=== PATIENT | male | born 1935 | race African-American/Black ===

== ENCOUNTER 2017-12-03 10:06 | Inpatient (IN) | payer OTHER ==
[~2017-12-03] VITALS: Ht 185.4 cm; Wt 77.1 kg
[2017-12-03 11:01] LABS: BASOPHILS % 1.1 % (0.0-2.0); EOSINOPHILS % 1.2 % (0.0-5.0); HEMATOCRIT. 41.9 % (42.0-52.0); HEMOGLOBIN. 13.3 g/dL (14.0-18.0); LYMPHOCYTES % 27.6 % (20.0-50.0); MEAN CORPUSCULAR HEMOGLOBIN 25.7 pg (28.0-32.0); MEAN PLATELET VOLUME 7.7 fl (7.4-10.4); NEUTROPHILS % 66.1 % (40.0-76.0); PLATELET 208 x1000/uL (130-400); RED BLOOD CELL COUNT 5.18 mill/uL (4.7-6.1); RED CELL DISTRIBUTION WIDTH 15.1 % (11.6-14.6)
[2017-12-03 11:10] LABS: INR 1.2; PARTIAL THROMBOPLASTIN TIME 28.6 sec (23.4-31.0); PROTHROMBIN TIME 12.3 sec (9.4-11.6)
[2017-12-03 11:19] LABS: CARBON DIOXIDE 24 mEq/L (21-32); CHLORIDE 105 mEq/L (98-107); CREATINE KINASE 50 IU/L (39-308); TROPONIN I < 0.02 ng/mL (0.00-0.04)
[2017-12-03] MEDS ORDERED: FUROSEMIDE 20MG/2ML VIAL IVP ONE (11:45)
[2017-12-03] MEDS ORDERED: GUAIFENESIN 200MG/10ML SUGAR FREE UDC PO PRN (11:45)
[2017-12-03] MEDS ORDERED: LORAZEPAM 2MG/ML CPJ IV PRN (11:45)
[2017-12-03] MEDS ORDERED: DIPHENHYDRAMINE 50MG/ML VIAL IV PRN (11:45)
[2017-12-03] MEDS ORDERED: DOCUSATE SODIUM 100MG CAPSULE PO PRN (11:45)
[2017-12-03] MEDS ORDERED: ONDANSETRON HCL 4MG/2ML VIAL IV PRN (11:45)
[2017-12-03] MEDS ORDERED: NA PHOS,M-B/NA PHOS,DI-BA ENEMA 118ML PR PRN (11:45)
[2017-12-03] MEDS ORDERED: HYDROMORPHONE HCL/PF 2MG/ML CPJ IV PRN (11:45)
[2017-12-03] MEDS ORDERED: CLONIDINE 0.1MG TABLET PO PRN (11:45)
[2017-12-03] MEDS ORDERED: MAGNESIUM/ALUMINUM HYDROXIDE/SIMETHICONE 30ML UDC PO PRN (11:45)
[2017-12-03] MEDS ORDERED: ACETAMINOPHEN 325MG TABLET PO PRN (11:45)
[2017-12-03] MEDS ORDERED: IPRATROPIUM/ALBUTEROL 0.5-3(2.5)MG/3ML NEB INH PRN (11:45)
[2017-12-03 13:15] VITALS: BP 142/94
[2017-12-03] MEDS: LISINOPRIL 5MG TABLET PO SCH (14:57)
[2017-12-03] MEDS: SODIUM CHLORIDE 0.45% 1,000 ML IV SCH (14:58)
[2017-12-03] MEDS: ENOXAPARIN 40MG/0.4ML SYR SUBCUT SCH (14:58)
[2017-12-03 16:00] VITALS: BP 128/70
[2017-12-03] MEDS ORDERED: FLUD0.1T PO (18:24)
[2017-12-03] MEDS ORDERED: ASPI-1159 PO (18:24)
[2017-12-03] MEDS ORDERED: LISI-186 PO (18:24)
[2017-12-03] MEDS ORDERED: SIMV20TA6 PO (18:24)
[2017-12-03 20:00] VITALS: BP 124/63
[2017-12-03 20:41] LABS: CARBON DIOXIDE 27 mEq/L (21-32); CHLORIDE 103 mEq/L (98-107); CREATINE KINASE 51 IU/L (39-308); TROPONIN I < 0.02 ng/mL (0.00-0.04)
[2017-12-03] MEDS ORDERED: ATORVASTATIN CALCIUM 20MG TABLET PO SCH (21:00)
[2017-12-03] MEDS: AMLODIPINE 5MG TABLET PO SCH (21:16)
[2017-12-04] VITALS (8 sets, daily range): BP systolic 81–148; BP diastolic 42–73
[2017-12-04] MEDS: SODIUM CHLORIDE 0.45% 1,000 ML IV SCH (06:10)
[2017-12-04 07:19] LABS: BASOPHILS % 1.1 % (0.0-2.0); EOSINOPHILS % 2.6 % (0.0-5.0); HEMATOCRIT. 35.9 % (42.0-52.0); HEMOGLOBIN. 11.7 g/dL (14.0-18.0); LYMPHOCYTES % 39.8 % (20.0-50.0); MEAN CORPUSCULAR HEMOGLOBIN 26.3 pg (28.0-32.0); MEAN CORPUSCULAR VOLUME 80.5 fL (80.0-94.0); MEAN PLATELET VOLUME 8.7 fl (7.4-10.4); MONOCYTES % 6.8 % (2.0-8.0); NEUTROPHILS % 49.7 % (40.0-76.0); PLATELET 148 x1000/uL (130-400); RED BLOOD CELL COUNT 4.46 mill/uL (4.7-6.1); RED CELL DISTRIBUTION WIDTH 15.2 % (11.6-14.6)
[2017-12-04 07:39] LABS: CHLORIDE 104 mEq/L (98-107); T4 FREE 0.91 ng/dL (0.76-1.46)
[2017-12-04 08:03] LABS: CARBON DIOXIDE 29 mEq/L (21-32)
[2017-12-04] MEDS: AMLODIPINE 5MG TABLET PO SCH (08:51)
[2017-12-04] MEDS: LISINOPRIL 5MG TABLET PO SCH (08:51)
[2017-12-04] MEDS ORDERED: FLUDROCORTISONE ACETATE 0.1MG TABLET PO SCH (09:00)
[2017-12-04] MEDS ORDERED: ASPIRIN 81MG EC TABLET PO SCH ×2 (09:00)
[2017-12-04] MEDS ORDERED: LISINOPRIL 5MG TABLET PO SCH (09:00)
[2017-12-04] MEDS: ENOXAPARIN 40MG/0.4ML SYR SUBCUT SCH (12:45)
[2017-12-05 15:07] LABS: ANTI-NUCLEAR ANTIBODIES DIRECT Negative (Negative)
[2017-12-06 06:18] LABS: COMPLEMENT C3 119 mg/dL (82-167)
== END 2017-12-04 18:27 | disposition short-term general hospital (02) | DRG 73 ==
LOC: ER 10:28 → 8WST 11:17 → EDBEDREQTM 11:19 → EDBEDREQ 11:19 → ENRESERV 11:33
PROVIDERS: ADMIT Internal Medicine; ATTEND Internal Medicine
DX: G90.8 Other disorders of autonomic nervous system (principal); N17.0 Acute kidney failure with tubular necrosis; G93.41 Metabolic encephalopathy; E46 Unspecified protein-calorie malnutrition; E11.22 Type 2 diabetes mellitus with diabetic chronic kidney disease; I13.0 Hypertensive heart and chronic kidney disease with heart failure and stage 1 through stage 4 chronic kidney disease, or unspecified chronic kidney disease; I50.30 Unspecified diastolic (congestive) heart failure; I44.1 Atrioventricular block, second degree; D64.9 Anemia, unspecified; D72.829 Elevated white blood cell count, unspecified; N18.9 Chronic kidney disease, unspecified; Z79.4 Long term (current) use of insulin; Z79.82 Long term (current) use of aspirin; Z79.899 Other long term (current) drug therapy; Z86.73 Personal history of transient ischemic attack (TIA), and cerebral infarction without residual deficits; Z87.891 Personal history of nicotine dependence; Z88.5 Allergy status to narcotic agent; Z90.49 Acquired absence of other specified parts of digestive tract; Z68.22 Body mass index [BMI] 22.0-22.9, adult
CPT/HCPCS: 36415; 70450; 71045; 76770; 80048; 80053; 82550; 82553; 83735; 83880; 84439; 84443; 84484; 85025; 85610; 85730; 86038; 86160; 93005; 93306; 93880; 99285; J1650; J1940